=== PATIENT | female | born 1985 | race Caucasian/White ===

== ENCOUNTER → 2019-03-28 | Outpatient (CLI) | payer OTHER ==
--- NOTE | 2019-03-28 17:56 | KCIC ---
EXAM: Bilateral hands, 3 views; pelvis, single view; lumbar spine, 5 views. HISTORY: Pain. COMPARISON: None. FINDINGS: Bilateral hands: 3 views of both hands are obtained. There is no fracture, dislocation or subluxation. There is a suspected bilateral ulnar negative variance. Pelvis: A frontal view of the pelvis is obtained. There is no fracture, dislocation or subluxation. There is minimal marginal femoral head spurring. There is an IUD overlying the pelvis to the left of midline. Lumbar spine: 5 views of the lumbar spine are obtained. There are 6 nonrib-bearing lumbar vertebral segments. There is no significant listhesis. The vertebral bodies are normal in height. There is endplate remodeling at multiple levels. There is facet arthropathy predominantly at the lower lumbar levels. IMPRESSION: 1. No acute osseous finding. 2. Mild degenerative change involving the lower lumbar spine. There are 6 nonrib-bearing lumbar vertebral segments, a normal variant. 3. Mild bilateral hip osteoarthritis. 4. Bilateral ulnar negative variance. Electronically signed by: Rosalind Lobo MD (03/28/2019 5:53 PM) [facility]
== END | disposition home or self-care (01) ==
LOC: KCIC CT 14:41
PROVIDERS: ATTEND Internal Medicine Rheumatology
DX: M47.896 Other spondylosis, lumbar region (principal); M16.0 Bilateral primary osteoarthritis of hip; M25.80 Other specified joint disorders, unspecified joint
CPT/HCPCS: 72110; 72170; 73130